=== PATIENT | male | born 1995 | race Hispanic/Latino ===

== ENCOUNTER 2019-12-03 09:43 | Emergency (ER) | payer SELFPAY ==
[2019-12-03] MEDS ORDERED: ACETAMINOPHEN 325 MG TAB ONE (10:00)
[2019-12-03] MEDS ORDERED: ACETAMINOPHEN 325 MG TAB PO ONE (10:02)
--- NOTE | 2019-12-03 12:00 | XRay Report ---
CHEST 2 VIEWS INDICATION: fever. COMPARISON: None FINDINGS: Support devices: None. Heart: Within normal limits. Lungs/pleura: No acute air space or interstitial disease. No pneumothorax. Additional findings: None. IMPRESSION: No acute findings. Signer Name: Dillon Honeycutt Jr, MD Signed: 12/03/2019 11:55 AM Workstation Name: [id number]
[2019-12-03] MEDS ORDERED: ALBUTEROL 2.5 MG/3 ML NEBU IH ONE (12:05)
[2019-12-03] MEDS ORDERED: predniSONE 20 MG TAB PO ONE (12:05)
--- NOTE | 2019-12-03 12:05 | Emergency Department Report ---
Minor Respiratory - HPI Chief Complaint: Fever Stated Complaint: VOMITING BLOOD Time Seen by Provider: 12/03/19 11:58 Duration: 1 Day Pain Location: Chest Severity: mild Minor Respiratory: Yes Sore Throat, Yes Able to Tolerate Fluids, Yes Cough, Yes Fever, No Rhinorrhea, No Ear Pain, No Sick Contacts, No Hemoptysis, No Chest Pain, No Shortness of Breath Other History: 24 YO COMES TO ER WITH COUGH. PRODUCTIVE FOR DARK BROWN SECRETIONS. DENIED FEVER BUT HAD FEVER ON ARRIVAL. NO SIGN. MED HX. NO HOME MEDS. ED Review of Systems ROS: Stated complaint: VOMITING BLOOD Other details as noted in HPI Comment: All other systems reviewed and negative ED Past Medical Hx - Past Medical History Previous Medical History?: No - Surgical History Past Surgical History?: No Additional Surgical History: eye - Family History Family history: no significant - Social History Smoking Status: Current Every Day Smoker Substance Use Type: Alcohol - Medications Home Medications: Home Medications Medication Instructions Recorded Confirmed Last Taken Type Azithromycin [Zithromax Z-DREW] 250 mg PO DAILY #6 tablet 12/03/19 Unknown Rx Cetirizine HCl [ZyrTEC] 10 mg PO DAILY #30 capsule 12/03/19 Unknown Rx Fluticasone [Flonase] 1 spray NS QDAY #1 bottle 12/03/19 Unknown Rx predniSONE [Deltasone] 20 mg PO DAILY #5 tablet 12/03/19 Unknown Rx Minor Respiratory Exam - Exam General: Vital signs noted. No distress. Alert and acting appropriately. HEENT: Yes Moist Mucous Membranes, No Pharyngeal Erythema, No Pharyngeal Exudates, No Rhinorrhea, No Conjuctival Injection, No Frontal Tenderness, No Maxillary Tenderness Ear: Neither TM Bulge, Neither TM Erythema, Neither EAC Pain, Neither EAC Discharge Neck: Yes Supple, No Adenopathy Lungs: Yes Good Air Exchange, Yes Wheezes, No Ronchi, No Stridor, No Cough, No Labored Respirations, No Retractions, No Use of Accessory Muscles, No Other Abnormal Lung Sounds Heart: Yes Regular, No Murmur Abdomen: Yes Normal Bowel Sounds, No Tenderness, No Peritoneal Signs Skin: No Rash, No Edema Neurologic: Alert and oriented, no deficits. Musculoskeletal: Unremarkable. ED Course Vital Signs 12/03/19 09:59 Temperature 100.5 F H Pulse Rate 132 H Respiratory 20 Rate Blood Pressure 144/72 O2 Sat by Pulse 99 Oximetry - Reevaluation(s) Reevaluation #1: 12/03/19 12:23 TEMP 995 HR 126 ED Medical Decision Making - Lab Data Result diagrams: 12/03/19 12:56 12/03/19 12:56 - EKG Data EKG shows normal: sinus rhythm Rate: tachycardia - EKG Data When compared to previous EKG there are: no significant change Interpretation: no acute changes - Radiology Data Radiology results: report reviewed, image reviewed - Medical Decision Making Labs 12/03/19 12/03/19 12/03/19 12:56 12:56 12:56 WBC 9.0 RBC 4.80 Hgb 15.6 H Hct 45.0 MCV 94 MCH 33 H MCHC 35 H RDW 12.9 L Plt Count 173 Lymph % (Auto) 9.9 L [place] % (Auto) 8.2 H Eos % (Auto) 0.0 Baso % (Auto) 0.3 Lymph # 0.9 L [place] # 0.7 Eos # 0.0 Baso # 0.0 Seg Neutrophils % 81.6 H Seg Neutrophils # 7.4 D-Dimer 319.55 H Sodium 136 L Potassium 4.1 Chloride 96.6 L Carbon Dioxide 23 Anion Gap 21 BUN 14 Creatinine 0.9 Estimated GFR > 60 BUN/Creatinine Ratio 16 Glucose 97 Calcium 9.3 Total Bilirubin 0.90 AST 30 ALT 16 Alkaline Phosphatase 125 Total Protein 7.9 Albumin 4.9 Albumin/Globulin Ratio 1.6 Urine Color Urine Turbidity Urine pH Ur Specific [place] Urine Protein Urine Glucose (UA) Urine Ketones Urine Blood Urine Nitrite Urine Bilirubin Urine Urobilinogen Ur Leukocyte Esterase Urine WBC (Auto) Urine RBC (Auto) U Epithel Cells (Auto) Urine Mucus 12/03/19 13:05 WBC RBC Hgb Hct MCV MCH MCHC RDW Plt Count Lymph % (Auto) [place] % (Auto) Eos % (Auto) Baso % (Auto) Lymph # [place] # Eos # Baso # Seg Neutrophils % Seg Neutrophils # D-Dimer Sodium Potassium Chloride Carbon Dioxide Anion Gap BUN Creatinine Estimated GFR BUN/Creatinine Ratio Glucose Calcium Total Bilirubin AST ALT Alkaline Phosphatase Total Protein Albumin Albumin/Globulin Ratio Urine Color Nel Urine Turbidity Clear Urine pH 5.0 Ur Specific [place] 1.029 Urine Protein 30 mg/dl Urine Glucose (UA) Neg Urine Ketones Neg Urine Blood Neg Urine Nitrite Neg Urine Bilirubin Neg Urine Urobilinogen 4.0 Ur Leukocyte Esterase Neg Urine WBC (Auto) 3.0 Urine RBC (Auto) 3.0 U Epithel Cells (Auto) < 1.0 Urine Mucus 3+ Vital Signs 12/03/19 12/03/19 12/03/19 09:59 13:58 14:04 Temperature 100.5 F H 100.9 F H Pulse Rate 132 H 129 H Pulse Rate [ 111 H Anterior Bilateral Throughout] Pulse Rate [ 113 H Bilateral] Respiratory 20 22 Rate Respiratory 18 Rate [Anterior Bilateral Throughout] Respiratory 18 Rate [Bilateral ] Blood Pressure 144/72 Blood Pressure 124/63 [Left] O2 Sat by Pulse 99 99 Oximetry EKG NOTED XRAY NOTED LABS NOTED UA NOTED CT NOTED URI S/S FLU NEG HR ELEVATED DENIES USE OF STIMULANTS DRUGS ETC NO CP NO SOB- JUST COUGH DDIMER SLIGHTLY INC CT NEG PE NO ABD PAIN NO DYSURIA NO BACK PAIN NO SIGN MED HX NO HOME MEDS IMPACTED R EAR LIKELY NOT SOURCE INFECTION MEDICATED AND MONITORED IN ED WITH REPORTS OF FEELING BETTER - Differential Diagnosis RO PNA/PE/URTI Critical care attestation.: If time is entered above; I have spent that time in minutes in the direct care of this critically ill patient, excluding procedure time. ED Disposition Clinical Impression: URTI (acute upper respiratory infection), Bronchitis, Impacted cerumen, right ear Disposition: DC-01 TO HOME OR SELFCARE Is pt being admited?: No Does the pt Need Aspirin: No Condition: Stable Instructions: Upper Respiratory Infection (ED), Chronic Bronchitis (ED) Additional Instructions: TAKE MEDS ORDERED AVOID SMOKING FOLLOW UP WITH PCP IN 2 DAYS TO BE SURE YOU ARE GETTING BETTER REFERRAL BELOW AVOID STIMULANTS YOUR HR WAS HIGH TODAY DRINK ALOT OF WATER DIET AND ACTIVITY TOLERATED Prescriptions: predniSONE [Deltasone] 20 mg PO DAILY #5 tablet Fluticasone [Flonase] 1 spray NS QDAY #1 bottle Azithromycin [Zithromax Z-DREW] 250 mg PO DAILY #6 tablet Cetirizine HCl [ZyrTEC] 10 mg PO DAILY #30 capsule Referrals: ARPAN CASTORENA MD [Staff Physician] - 3-5 Days Forms: Work/School Release Form(ED) Time of Disposition: 12:17
[2019-12-03] MEDS ORDERED: SODIUM CHLORIDE 0.9% 1000 ML 1,000 ML IV ONE ×2 (12:22→14:31)
[2019-12-03] MEDS ORDERED: AZITHROMYCIN 500 MG in SODIUM CHLORIDE 0.9% 250ML 250 ML IV ONE (12:32)
[2019-12-03 13:08] LABS: Basophils % (Auto) 0.3 % (0.0-1.8); Hemoglobin 15.6 gm/dl (11.8-15.2); Lymphocytes # (Auto) 0.9 K/mm3 (1.2-5.4); Lymphocytes % (Auto) 9.9 % (13.4-35.0); Mean Corpuscular HGB Conc 35 % (32-34); Mean Corpuscular Volume 94 fl (84-94); Monocytes # (Auto) 0.7 K/mm3 (0.0-0.8); Monocytes % (Auto) 8.2 % (0.0-7.3); Platelet Count 173 K/mm3 (140-440); Red Cell Distribution Width 12.9 % (13.2-15.2)
[2019-12-03 13:35] LABS: Alanine Aminotransferase 16 units/L (7-56); Albumin 4.9 g/dL (3.9-5); BUN/Creatinine Ratio 16; Blood Urea Nitrogen 14 mg/dL (9-20); Calcium 9.3 mg/dL (8.4-10.2); Hemolysis Index 59
[2019-12-03 13:50] LABS: Bilirubin,Urine NEG (Negative); Blood,Urine NEG (Negative); Color,Urine Amber (Yellow)
[2019-12-03 14:10] LABS: Mucus,Urine 3+ /HPF
--- NOTE | 2019-12-03 14:25 | Cat Scan Report ---
CTA CHEST WITH IV CONTRAST INDICATION: HEMOPTYSIS. TECHNIQUE: Axial CT images were obtained through the chest after injection of IV contrast. 3 plane MIP reconstru ctions were produced. All CT scans at this location are performed using CT dose reduction for ALARA b y means of automated exposure control. COMPARISON: No prior chest CTs. FINDINGS: Pulmonary Arteries: No pulmonary emboli. Thoracic Aorta: No acute abnormality. Heart: Normal. Lungs: No acute air space or interstitial disease. Pleura: No pleural effusion. No pneumothorax. Lymph Nodes: No significant adenopathy. Additional Findings: None. Upper Abdomen: No acute findings. Skeletal Structures: No significant osseous abnormality. IMPRESSION: 1. No CT evidence for pulmonary embolism. 2. No acute findings. Signer Name: Zhou Rashid MD Signed: 12/03/2019 2:20 PM Workstation Name: [id number]
[2019-12-03] MEDS ORDERED: IBUPROFEN 800 MG TAB PO ONE (14:32)
[2019-12-03] MEDS ORDERED: HYDROcodone/ACETAMINOPHEN 5-325 MG TAB PO ONE (15:40)
[2019-12-03] MEDS ORDERED: BENZONATATE 100 MG CAP PO ONE (15:40)
[2019-12-03 16:18] VITALS: BP 114/65
== END 2019-12-03 16:17 | disposition home or self-care (01) ==
LOC: ED 09:43
DX: J06.9 Acute upper respiratory infection, unspecified (principal); J40 Bronchitis, not specified as acute or chronic; H61.21 Impacted cerumen, right ear; K92.0 Hematemesis; F17.200 Nicotine dependence, unspecified, uncomplicated; F10.10 Alcohol abuse, uncomplicated; Z79.899 Other long term (current) drug therapy
CPT/HCPCS: 36415; 71046; 71275; 80053; 81001; 85025; 85379; 93005; 93010; 94640; 96361; 96365; 99285; J0456; J7030; J7050; J7512; Q9967; 94644